=== PATIENT | male | born 1960 | race Caucasian/White ===

== ENCOUNTER → 2016-05-14 | Outpatient (CLI) | payer OTHER ==
--- NOTE | 2016-05-14 15:13 | RADIOLOGY REPORT PS360 ---
[id number] [id number] HISTORY: Shoulder pain, joint effusion EFFUSION SHOULDER JOINT COMPARISON: 01/29/2016 FINDINGS: No fracture or dislocation. No lytic or blastic change. There is normal mineralization. There are postsurgical changes with 2 anchor screws present along the humeral head there is some nonspecific lucency of the humeral head at the greater tuberosity region which could represent subchondral cystic changes. The glenohumeral joint has an unremarkable appearance. IMPRESSION: 1. Post surgical changes with nonspecific lucency of the humeral head
== END ==
LOC: RAD 14:19
DX: M25.412 Effusion, left shoulder (principal)